=== PATIENT | female | born 1970 | race Caucasian/White ===

== ENCOUNTER 2017-08-05 06:40 | Observation (INO) | payer SELFPAY ==
[2017-08-04 16:56] VITALS: BMI 18.3
[2017-08-05] MEDS ORDERED: MIDAZOLAM HCL 2 MG/2 ML SINGLE DOSE VIAL ONE ×2 (07:48→10:06)
[2017-08-05] MEDS ORDERED: ROCURONIUM BROMIDE 50 MG/5 ML VIAL ONE (07:48)
[2017-08-05] MEDS ORDERED: PROPOFOL 20 ML ONE ×2 (07:48→07:49)
--- NOTE | 2017-08-05 08:04 | HP ---
Admitting History and Physical - Admission Chief Complaint: Abdominal wall laxity History of Present Illness: 46 year old femal with previous two pregnancies, last child was heavy over 10 lbs, resulted in laxity of abdominal muslces and laxity of skin. Patient states she has regular excercise regime but unable to tighten her muscles and loose the lower abdominal bulge History Source: Patient - Past Medical History ...LMP: 07/26/17 - Advance Directives Advance Directives: Yes: Living Will, Health Care Proxy - Smoking History Smoking history: Former smoker Have you smoked in the past 12 months: No If you are a former smoker, when did you quit?: 20YRS AGO - Alcohol/Substance Use Hx Alcohol Use: No Home Medications - Allergies Allergies/Adverse Reactions: Allergies Allergy/AdvReac Type Severity Reaction Status Date / Time codeine Allergy "VOMITTING" Verified 08/04/17 17:17 - Home Medications Home Medications: Ambulatory Orders Multivitamin [One Daily] 1 each PO DAILY 08/04/17 Physical Examination Vital Signs: Vital Signs Temperature 97.9 F 08/05/17 07:26 Pulse Rate 70 08/05/17 07:26 Respiratory Rate 18 08/05/17 07:26 Blood Pressure 97/71 08/05/17 07:26 O2 Sat by Pulse Oximetry (%) 99 08/05/17 07:26 Assessment/Plan Plan : Removal of excess skin, abdominal wall tightening, relocation of umbilicus . Procedure and complications have been explained, including all the risks specially scars, asymmetry, excess bulge in lower most portion of abdominal skin to avoid skin dehiscence All concerns answered
[2017-08-05] MEDS ORDERED: LIDOCAINE HCL/PF 2% SDV 5ML VIAL ONE (08:11)
[2017-08-05] MEDS ORDERED: ceFAZolin SODIUM 1 GM VIAL IVPB ONE (08:14)
[2017-08-05] MEDS ORDERED: SODIUM CHLORIDE 0.9% P/F 10 ML VIAL IJ ONE (08:15)
[2017-08-05] MEDS ORDERED: ceFAZolin SODIUM 1 GM VIAL ONE (08:15)
[2017-08-05] MEDS ORDERED: BUPIVACAINE HCL/PF 0.25% (2.5MG/ML) 10 ML VIAL IJ ONE ×2 (08:23)
[2017-08-05] MEDS ORDERED: DEXAMETHASONE SOD PHOSPHATE 4 MG/1 ML VIAL ONE (08:32)
[2017-08-05] MEDS ORDERED: PROMETHAZINE HCL 25 MG/1 ML VIAL IVPUSH PRN (10:37)
[2017-08-05] MEDS ORDERED: ONDANSETRON 4 MG/2 ML VIAL IVPUSH PRN (10:37)
[2017-08-05] MEDS ORDERED: PROMETHAZINE HCL 25 MG/1 ML VIAL IVPB PRN (11:02)
[2017-08-05] MEDS: ACETAMINOPHEN 1000 MG/100 ML VIAL (NON FORMULARY) IVPB PRN ×3 (11:26→22:28)
[2017-08-05] MEDS: LACTATED RINGERS SOLUTION 1,000 ML IV SCH ×2 (13:31→21:07)
[2017-08-05] MEDS ORDERED: KETOROLAC TROMETHAMINE 15 MG/ML VIAL IVPUSH ONE (23:06)
--- NOTE | 2017-08-05 23:13 | HOSP ---
Subjective - Review of Symptoms General: No: Chills, Night Sweats, Fatigue, Malaise, Appetite, Other HEENT: No: Head Aches, Visual Changes, Eye Pain, Ear Pain, Dysphasia, Sinus Congestion, Post Nasal Drip, Sore Throat, Other Pulmonary: No: Dyspnea, Cough, Pleuritic Chest Pain, Other Cardiovascular: No: Chest Pain, Palpitations, Orthopnea, Paroxysmal Noc. Dyspnea , Edema, Light Headedness, Other Gastrointestinal: No: Nausea, NOSYM, Vomiting, Abdominal Pain, Diarrhea, Constipation, Melena, Hematochezia, Other Genitourinary: No: Dysuria, NOSYM, Frequency, Incontinence, Hematuria, Retention , Other Musculoskeletal: No: No Symptoms, Back Pain, Crepitus, Decreased ROM, Extremity Pain, Joint Pain, Joint Swelling, Muscle Pain, Muscle Cramps, Muscle Weakness, Other Neurological: No: Weakness, Numbness, Incoordination, Change in speech, Confusion, Seizures, Other Physical Examination Vital Signs: Vital Signs Temperature 97.5 F L 08/05/17 22:06 Pulse Rate 79 08/05/17 22:06 Respiratory Rate 20 08/05/17 22:06 Blood Pressure 102/70 08/05/17 22:06 O2 Sat by Pulse Oximetry (%) 98 08/05/17 14:04 Constitutional: Yes: Well Nourished, No Distress, Anxious, Pallor Eyes: Yes: Conjunctiva Clear, EOM Intact HENT: Yes: Normocephalic Neck: Yes: Supple Cardiovascular: Yes: Regular Rate and Rhythm, S1, S2 Respiratory: Yes: CTA Bilaterally. No: Accessory Muscle Use Gastrointestinal: Yes: Normal Bowel Sounds, Soft (surgery site covered), Other ( surgery site covered) Hospitalist Encounter Assessment: I was paged by the nurse to check on patient mentioned after she fell in bath room and hit her head . Patient reports that she lay on her side and then hit her head . no bleeding or loss of consciousness was reported. She denies any headache, dizziness or light headedness # S/P fall Patient vitals are stable Patient is AAO X3 Fall protocol [address] head w/o contrast Neuro monitor Q 4 hours inform Primary doctor Visit type - Emergency Visit Emergency Visit: Yes Care time: The patient presented to the Emergency Department on the above date and was hospitalized for further evaluation of their emergent condition. - New Patient This patient is new to me today: Yes Date on this admission: 08/06/17 - Critical Care Critical Care patient: No
[2017-08-06] MEDS: LACTATED RINGERS SOLUTION 1,000 ML IV SCH (05:03)
[2017-08-06] MEDS: ACETAMINOPHEN 1000 MG/100 ML VIAL (NON FORMULARY) IVPB PRN (05:19)
[2017-08-06] MEDS: LIDOCAINE 5% TOPICAL PATCH TP SCH (12:08)
--- NOTE | 2017-08-06 12:12 | PN ---
Progress Note (short form) - Note Progress Note: Post Op day 1 , Post Abdominoplasty Patient experienced syncopal attack while on toilet last night hitting her Left side of head, nurse immediately responded and put her back in bed, since than she still experience nausea . and low BP. Patient tends to run low BP, pain at the Op site further aggravating her condition Getting OOB is very limited due to dizziness Selected Entries 08/06/17 08/06/17 02:00 08:00 Temperature 98.3 F 97.7 F Pulse Rate 80 Blood Pressure 97/62 102/56 Plan : Unable to be discharged due to medical condition Patient is allergic to Codeine ...limiting pain control 5% Lidocaine patch ordered Encouraged increased fluid intake, increase drinks, food intake
--- NOTE | 2017-08-06 13:47 | OP ---
DATE OF OPERATION: 08/05/2017 PREOPERATIVE DIAGNOSIS: Abdominal laxity. POSTOPERATIVE DIAGNOSIS: Abdominal laxity. PROCEDURE DONE: Abdominoplasty. SURGEON: Jaren Moser MD ANESTHESIOLOGIST: Danis Gilliam MD TYPE OF ANESTHESIA: General with local supplementation of 1% lidocaine with epinephrine and 0.25% Marcaine total of over 20 mL. DESCRIPTION OF PROCEDURE: Patient was brought to the operating room. Markings were carried out in the holding area. SCDs were applied on both legs. Patient was transferred to the operating table. General anesthesia was administered. Time-out was carried out. Patient was identified including the procedure. Once it was then agreed, skin was prepped with Betadine and draped in the standard aseptic manner. Lower incision in the markings which had been carried out was made just above the pubic area going up to the anterior iliac spine. Flaps were elevated, and dissection was carried out over the fascia. Care was taken to minimize ligating perforators. Dissection proceeded up to the area of the umbilicus. It was then detached from the fascia. Dissection then proceeded in the epigastric area. Fascia level was repaired using 4-0 Ethibond. From where the umbilicus had been detached, there was a weakness in the musculature. This was then reinforced. Abdominoplasty with muscle repair was carried out also using Ethibond, figure-of-8 was applied in the midline from the epigastric to the area of the pubic area. The final repair was done with 4-0 running Biosyn. Umbilicus was floated. Excess skin and subcutaneous tissue were then excised. Scarpas fascia was repaired with 3-0 Biosyn. At the end of the procedure, circulation to the skin flaps was satisfactory. Skin was then approximated in 2 layers. Scarpas fascia as well as the dermal layer closure was undertaken with the running subcuticular 4-0 Biosyn. Steri-Strips, Xeroform, Bacitracin, and fluffs were applied. Patient was then extubated, sent to the recovery room in a satisfactory condition. Estimated blood loss was 100 mL. Suture and instrument counts were correct at the end of the procedure. Seth [id number]
[2017-08-06] MEDS: ACETAMINOPHEN 325 MG TABLET (FP) PO PRN ×2 (17:15→23:18)
[2017-08-06] MEDS ORDERED: LIDOCAINE PATCH REMOVAL MC SCH (22:00)
[2017-08-07] MEDS: ACETAMINOPHEN 325 MG TABLET (FP) PO PRN ×2 (05:05→11:26)
[2017-08-07] MEDS: LIDOCAINE 5% TOPICAL PATCH TP SCH (11:00)
[2017-08-07 14:22] VITALS: BP 104/58; PULSE 72; TEMP 98
== END 2017-08-07 16:34 | disposition home or self-care (01) ==
LOC: JASUSAT 06:40 → EDSTATUS 08:00 → J6S 13:20 → JASUSAT 13:20 → J6S 14:55
PROVIDERS: ADMIT Plastic Surgery; ATTEND Plastic Surgery
PROC: 0J080ZZ Alteration of Abdomen Subcutaneous Tissue and Fascia, Open Approach (ICD-10-PCS; principal; 2017-08-05 08:00)
DX: L57.4 Cutis laxa senilis (principal); S09.90XA Unspecified injury of head, initial encounter; W18.12XA Fall from or off toilet with subsequent striking against object, initial encounter; Y93.89 Activity, other specified; Y92.231 Patient bathroom in hospital as the place of occurrence of the external cause
CPT/HCPCS: 84703; 94010; 94760; G0378